=== PATIENT | female | born 1980 | race Caucasian/White ===

== ENCOUNTER 2018-07-26 18:51 | Emergency (ER) | payer MEDICAID ==
[2018-07-26] MEDS ORDERED: METOCLOPRAMIDE 10 MG/2 ML VIAL IVP ONE (20:09)
[2018-07-26] MEDS ORDERED: NS 1,000 ML IV ONE (20:09)
[2018-07-26] MEDS ORDERED: DEXAMETHASONE 10 MG/ML VIAL IVP ONE (20:09)
[2018-07-26] MEDS ORDERED: KETOROLAC 30 MG/1 ML SDV IVP ONE (20:09)
[2018-07-26 20:16] LABS: PLATELET COUNT 508 10^3/uL (150-400)
--- NOTE | 2018-07-26 21:01 | EDPHY ---
General - History Smoking Status: Never smoked Time Seen by Provider: 07/26/18 19:43 Narrative: CLINICAL IMPRESSION: Headache, episodic dizziness, pupillary abnormality, vision changes left eye ASSESSMENT/PLAN: 38-year-old female with reported past medical history of chronic migraines managed by [facility], presents to the emergency department with a daily headache, left facial arm and leg paresthesias for the last week and a half, worsened today and associated with episodic dizziness and lightheadedness, blurry vision from the left eye and changes to the pupil of the left eye. No reported head trauma, neck manipulation, chiropractic adjustment, MVA or deep tissue massage. No meningeal findings. Vital signs stable. NIH score of 0 with no limb ataxia or focal neurological deficits on exam aside from an abnormally dilated left pupil compared to right. Patient is also complaining of intermittent chest pain over the last 3 days. She has a reassuring EKG showing normal sinus rhythm with no acute ST or T-wave changes and troponin is negative. Case was discussed with Dr. Mancilla as well as Radiology. Patient had an MRI noncontrast brain which was unremarkable. Unfortunately pressure testing technician read MR venogram incorrectly and patient received an MRI arteriogram. She then went back to MR for a venogram. Both studies were reassuring with no abnormal findings including aneurysm or thrombus. Lab work shows significant anemia and patient believes she has been anemic for some time but cannot recollect what her last H&H were. She adamantly denies bright red bloody stools, melena, hematemesis and abdominal pain. Headache improved slightly although did not resolve with a headache cocktail. I offered discussed her case with our neurologist but she wishes to follow up tomorrow with her [facility]. She also has an clinical unit coordinator that she prefers to contact tomorrow and is requesting discharge home. I strongly recommend follow up with her primary care doctor to discuss her significant anemia and we reviewed [id number] therapies for this as well as dietary changes. Low threshold for return to ED sooner as outlined in person with the patient and her and discharge papers. DIFFERENTIAL DX: Differential diagnosis for headache includes but not limited to subarachnoid hemorrhage, migraine headache, migraine varient headache, tension headache and infectious causes such as meningitis, pharyngitis and sinusitis. ED PROCEDURES: See lab and/or imaging results below ED COURSE: Case discussed with Dr. Mancilla. Also reviewed with Dr. Singleton. Given patient' s headache, pupillary changes, subjective vision changes, and left-sided paresthesias, will proceed with MRI brain as well as MR venogram of the head 10:00 p.m.: MRI brain read by Dr. Singleton showing mild white matter changes in the frontal region, post viral versus migraine related. Unfortunately pressure testing technician read the order wrong and patient received an MRI a verses an MRV. Patient will have to be taken back to MRI. I have explained this to the patient and she is reluctant but agrees. Reports her headache is mildly improved. 10:45 p.m.: MR venogram read by Dr. Singleton with no acute abnormality identified. Given that patient had received the wrong MR, her arteriogram is also negative without evidence of aneurysm. I discussed results of all imaging studies and labs with the patient. I have offered to discuss her findings with Neurology but she is established with [facility] and would prefer to contact their office tomorrow. She is requesting discharge home. She states her headache feels about the same but states "I always have a headache". She also has an clinical unit coordinator that she plans to contact tomorrow. Case again reviewed with Dr. Mancilla. CHIEF COMPLAINT: Headache, dizziness, vision changes, pupillary changes, paresthesias HPI: 38 yo female with a PMH of migraines treated with botox and tylenol and followed by [facility] presents to the ER with her for concerns of BERNAL, dizziness, left eye visions and pupil changes and left sided numbness. She reports she "always has a headache" and that 1.5 weeks ago she not only had a headache but also some intermittent left arm and leg paresthesias and left sided facial numbness. today around 1-2 pm she noted that her headache became worse, became localized to the left side, and that she developed some blurry vision out of the left eye. Her also reports some pupillary changes in the left eye. She reports the paresthesias in the left arm leg and face have become more constant. No weakness to the extremities and she has been able to walk. She reports some dizziness, described as lightheadedness, but no vertigo. No history of closed head injury, recent chiropractic adjustment, deep tissue massage to the neck, or motor vehicle collision. She describes some pain along the back of the neck. No associated fever, chills, recent URI symptoms. She feels nauseous but has not vomited and denies diarrhea. Her last Botox injection was 5 weeks ago. She is also complaining of intermittent left chest pain for the last several days. She is not sedentary, has not had any recent travel, and denies personal and family history of cardiovascular disease although states her daughter has "Crumpton syndrome" which apparently causes some cardiac defects. Patient reports she has had a normal EKG in the past. PAST MEDICAL HISTORY: Chronic migraines See nurse/triage notes for additional history if applicable Pertinent Past Surgical History: None reported Family History: No personal or first-degree family relative with cardiovascular disease Social History: Smokes marijuana, here with her ,has 10 children. REVIEW OF SYSTEMS: All other systems negative Constitutional: No fever, no chills, appetite change. Eyes: No discharge, positive for vision change ENT: No sore throat, congestion, ear pain. Cardiovascular: positive for chest pain, no palpitations. Respiratory: No cough, no shortness of breath. Gastrointestinal: No abdominal pain, positive for nausea, no vomiting, diarrhea. Genitourinary: No hematuria, dysuria, flank pain, pelvic pain Musculoskeletal: No back pain, joint swelling, joint pain, myalgias. Skin: No rashes, color change. Neurological: positive for headache, dizziness, paresthesias to face, left arm , left leg PHYSICAL EXAM: General Appearance: Alert, oriented, appropriate, cooperative, sitting in a dark room, answering all questions appropriately, NAD, well hydrated, non-toxic appearing, VSS, no hypoxia. at bedside HEENT: TMs are clear bilaterally no perforation or FB, no injection, no evidence of serous or mucopurulent otitis. Oropharynx clear is no erythema or exudates, no tonsillar hypertrophy or asymmetry. Dentition without abnormality. Eyes: Asymmetric pupils, right pupil approximately 3 mm, left pupil approximately 5 mm. Asymmetric pupillary constriction. Blurriness reported to central and peripheral visual patterson although patient can detect movement in all visual patterson. No nystagmus, swelling, discharge, pain, positive for photosensitivity. Conjunctiva pink, no pallor or injection Neck: Supple, nontender, no lymphadenopathy, no midline pain, FROM, no meningismus, no reproducible tenderness to palpation. No carotid bruits Respiratory: There are no retractions, lungs are clear to auscultation. Cardiac: Regular rate and rhythm, no murmurs or gallops. Gastrointestinal: Abdomen is soft, nontender, bowel sounds normal, no masses/ hernia, no rigidity, guarding or focal peritoneal findings. Neurological: Alert and oriented x 3, CN 2-12 grossly intact, NIH score of 0, no limb ataxia, DTR's intact, reports paresthesias to left arm, left leg and left maxilla region of the face, strength Skin: Warm, dry, no rashes, no nodules on palpation. Musculoskeletal: Extremities are symmetrical, full range of motion, no tenderness, deformity, swelling, or erythema. Psychiatric: Patient is oriented X 3, there is no agitation. MEDICAL DECISION MAKING: Patient was seen independently. Secondary supervising physician at time of evaluation was Dr. Mancilla. Diagnosis: Acute on chronic headaches, episodic lightheadedness, vision changes with pupillary abnormality of the left eye. New, requires workup Summary: See Assessment and Plan for summary of ED visit Clinical lab tests: ordered / reviewed. Independent visualization of images, tracing, or specimens: Yes. Decision to obtain medical records or history from someone other than the patient: Patient's Review / Summarize previous medical records: No Discussed patient with another provider: Radiology, Dr. Mancilla Patient Progress: Stable for discharge. (Aman Boothe) Medical Decision Making: I did not see this patient while she was in the emergency department. However her care was discussed with the PA while the patient was in the department. I agree with treatment plan and management (Ld Mancilla) - Diagnostics Imaging Results: Imaging Impressions Brain MRI 07/26/18 20:07 Impression: 1. A few nonspecific hyperintense T2/FLAIR signal abnormalities in the subcortical white matter of right frontal lobe. Differential diagnosis includes post-infectious/post-inflammatory sequela, atypical demyelinating disease, or migraine-related sequela. Otherwise, normal MRI of the brain without contrast. If symptoms worsen, additional imaging may be necessary. Head MRA 07/26/18 20:07 Impression: 1. Normal MR venogram of the head. No evidence of sinus thrombosis. 2. Normal MRA of the [place] as detailed above. - Objective Vital Signs: Initial Vital Signs Temperature (C) 36.7 C 07/26/18 18:57 Heart Rate 73 07/26/18 18:57 Respiratory Rate 16 07/26/18 18:57 Blood Pressure 126/75 H 07/26/18 18:57 O2 Sat (%) 98 07/26/18 18:57 O2 Delivery Mode Room Air Allergies/Adverse Reactions: No Known Allergies Allergy (Unverified 07/26/18 19:00) Home Medications: Medication Instructions Recorded NK [No Known Home Meds] 07/26/18 Laboratory Results: Laboratory Results 07/26/18 19:35 07/26/18 19:35 07/26/18 07/26/18 19:35 19:35 WBC 6.73 10^3/uL 10^3/uL (3.80-9.50) RBC 3.37 10^6/uL L 10^6/uL (4.18-5.33) Hgb 8.4 g/dL L g/dL (12.6-16.3) Hct 27.7 % L % (38.0-47.0) MCV 82.2 fL fL (81.5-99.8) MCH 24.9 pg L pg (27.9-34.1) MCHC 30.3 g/dL L g/dL (32.4-36.7) RDW 16.0 % H % (11.5-15.2) Plt Count 508 10^3/uL H 10^3/uL (150-400) MPV 9.9 fL fL (8.7-11.7) Neut % (Auto) 64.2 % % (39.3-74.2) Lymph % (Auto) 25.3 % % (15.0-45.0) [place] % (Auto) 6.7 % % (4.5-13.0) Eos % (Auto) 3.3 % % (0.6-7.6) Baso % (Auto) 0.4 % % (0.3-1.7) Nucleat RBC Rel Count 0.0 % % (0.0-0.2) Absolute Neuts (auto) 4.32 10^3/uL 10^3/uL (1.70-6.50) Absolute Lymphs (auto) 1.70 10^3/uL 10^3/uL (1.00-3.00) Absolute Monos (auto) 0.45 10^3/uL 10^3/uL (0.30-0.80) Absolute Eos (auto) 0.22 10^3/uL 10^3/uL (0.03-0.40) Absolute Basos (auto) 0.03 10^3/uL 10^3/uL (0.02-0.10) Absolute Nucleated RBC 0.00 10^3/uL 10^3/uL (0-0.01) Immature Gran % 0.1 % % (0.0-1.1) Immature Gran # 0.01 10^3/uL 10^3/uL (0.00-0.10) Sodium 137 mEq/L mEq/L (135-145) Potassium 4.1 mEq/L mEq/L (3.5-5.2) Chloride 108 mEq/L mEq/L (97-110) Carbon Dioxide 23 mEq/l mEq/l (22-31) Anion Gap 6 mEq/L mEq/L (6-14) BUN 9 mg/dL mg/dL (7-23) Creatinine 0.6 mg/dL mg/dL (0.6-1.0) Estimated GFR > 60 Glucose 84 mg/dL mg/dL (70-100) Calcium 8.0 mg/dL L mg/dL (8.5-10.4) Troponin I < 0.012 ng/mL ng/mL (0.000-0.034) Medications Given: Discontinued Medications Dexamethasone (Decadron Injection) 10 mg IVP EDNOW ONE Stop: 07/26/18 20:10 Last Admin: 07/26/18 20:32 Dose: 10 mg Diphenhydramine HCl (Benadryl Injection) 50 mg IVP EDNOW ONE Stop: 07/26/18 20:10 Last Admin: 07/26/18 20:30 Dose: 50 mg Sodium Chloride (Ns) 1,000 mls @ 0 mls/hr IV ONCE ONE; Wide Open PRN Reason: Protocol Stop: 07/26/18 20:10 Last Admin: 07/26/18 20:29 Dose: 1,000 mls Ketorolac Tromethamine (Toradol) 15 mg IVP EDNOW ONE Stop: 07/26/18 20:10 Last Admin: 07/26/18 20:29 Dose: 15 mg Metoclopramide HCl (Reglan Injection) 10 mg IVP EDNOW ONE Stop: 07/26/18 20:10 Last Admin: 07/26/18 20:40 Dose: 10 mg Departure - Departure Disposition: Home, Routine, Self-Care Clinical Impression: Headache around the eyes, Paresthesia, Episodic lightheadedness, Anemia Condition: Fair Instructions: Acute Headache (ED), Anemia (ED) Additional Instructions: DISCHARGE INSTRUCTIONS FROM YOUR DOCTOR Thank you for visiting our emergency department today. You were treated by a physician speech correction assistant today and your case was reviewed with our ED Attending physician. Please keep in mind that discharge from the emergency department does not mean that there is nothing wrong - it simply means that we have not identified an emergency condition that requires further evaluation or treatment in the hospital. You should always plan to follow up with primary care for re- evaluation of your condition in the next 2-3 days. If you have been referred to a specialist, please call as soon as possible (today or tomorrow) to schedule your follow up appointment at the appropriate time. DIAGNOSTIC EVALUATION IN THE EMERGENCY DEPARTMENT TONIGHT INCLUDED LABORATORY WORK, EKG, CARDIAC ENZYMES, MRI OF THE BRAIN WITHOUT CONTRAST, AND AN MRI VENOGRAM WELL ARTERIOGRAM OF THE HEAD. LABS REVEALED ANEMIA WITH HEMOGLOBIN OF 8 IN 27. I STRONGLY RECOMMEND THAT YOU TAKE A MULTIVITAMIN AND POSSIBLY AN IRON SUPPLEMENT AND FOLLOW UP WITH PRIMARY CARE FOR FURTHER EVALUATION OF THIS. NO ELECTROLYTE IMBALANCE, CARDIAC ENZYMES ARE NORMAL, EKG IS UNREMARKABLE. MRI SCANS WERE READ BY THE RADIOLOGIST SHOWING NO ABNORMAL FINDINGS, NO EVIDENCE OF ANEURYSM, BLOOD CLOT, MASS, OR OTHER ABNORMALITY. I STRONGLY RECOMMEND THAT YOU CONTACT HER [facility] T[facility]ORROW, LET THEM KNOW YOUR IN THE EMERGENCY DEPARTMENT AND GET A FOLLOW-UP APPOINTMENT IN THE NEXT 24-48 HOURS. I ALSO RECOMMEND THAT YOU HAVE AN APPOINTMENT WITH YOUR DIRECTOR INSURANCE TO EVALUATE HER VISION CHANGES. PLEASE RETURN TO THE EMERGENCY DEPARTMENT IMMEDIATELY FOR WORSENING OR SEVERE HEADACHE, VOMITING, ALTERED MENTAL STATUS, SEIZURE DISORDER, LOSS OF VISION, FEVER GREATER THAN 100.4, OR ANY OTHER CONCERN. People present with illnesses and injuries in different ways, and it is always possible that we have missed something. You may always return for re-evaluation if symptoms worsen or if they are not improving or if you develop new/different symptoms. Again, thank you for choosing our emergency department. We hope that you feel better. Referrals: NONE *PRIMARY CARE P,. [Primary Care Provider] - As per Instructions [facility] ,. [Edm Groups for Call Sched] - As per Instructions
[2018-07-26 22:54] VITALS: BP 109/69
--- NOTE | 2018-07-26 23:40 | CPEKG ---
Test Reason : OPEN Blood Pressure : / mmHG Vent. Rate : 065 BPM Atrial Rate : 064 BPM P-R Int : 125 ms QRS Dur : 080 ms QT Int : 412 ms P-R-T Axes : 047 033 011 degrees QTc Int : 429 ms Sinus rhythm Confirmed by Ld Mancilla ([id number]) on 07/26/2018 11:39:57 PM Referred By: Ld Mancilla Confirmed By:Ld Mancilla
== END 2018-07-26 23:09 | disposition home or self-care (01) ==
DX: R51 Headache (principal); R20.0 Anesthesia of skin; R42 Dizziness and giddiness; D64.9 Anemia, unspecified; E86.9 Volume depletion, unspecified
CPT/HCPCS: 70551-PN; 96374; J1100; J1200; J1885; J2765